=== PATIENT | male | born 1980 | race African-American/Black ===

== ENCOUNTER 2019-08-22 13:37 | Emergency (ER) | payer MEDICAID ==
[~2019-08-22] VITALS: Ht 180.3 cm; Wt 75.0 kg
[2019-08-22 13:39] VITALS: BP 136/78
== END 2019-08-22 14:40 | disposition left against medical advice (07) ==
LOC: ER 13:37
DX: M54.9 Dorsalgia, unspecified (principal); Z53.21 Procedure and treatment not carried out due to patient leaving prior to being seen by health care provider

== ENCOUNTER 2019-09-28 13:10 | Emergency (ER) | payer MEDICAID ==
[~2019-09-28] VITALS: Ht 182.9 cm; Wt 100.0 kg
[2019-09-28] MEDS ORDERED: SODIUM CHLORIDE 0.9% 1,000 ML IV ONE (13:20)
[2019-09-28] MEDS ORDERED: MORPHINE SULFATE 4 MG/ML CPJ (NOT FOR IM USE) IV ONE ×2 (13:30→15:00)
[2019-09-28 13:58] LABS: BASOPHILS % 0.5 % (0.0-2.0); EOSINOPHILS % 3.9 % (0.0-5.0); HEMATOCRIT. 39.6 % (42.0-52.0); HEMOGLOBIN. 13.7 g/dL (14.0-18.0); LYMPHOCYTES % 27.4 % (20.0-50.0); MEAN CORPUSCULAR HEMOGLOBIN 31.7 pg (28.0-32.0); MEAN CORPUSCULAR VOLUME 91.6 fL (80.0-94.0); MEAN PLATELET VOLUME 8.1 fl (7.4-10.4); MONOCYTES % 11.8 % (2.0-8.0); NEUTROPHILS % 56.4 % (40.0-76.0); PLATELET 275 x1000/uL (130-400); RED BLOOD CELL COUNT 4.32 mill/uL (4.7-6.1); RED CELL DISTRIBUTION WIDTH 13.2 % (11.6-14.6)
[2019-09-28 14:02] LABS: PROTHROMBIN TIME 10.9 sec (9.6-11.0)
[2019-09-28 14:19] LABS: CHLORIDE 107 mEq/L (98-107)
[2019-09-28] MEDS ORDERED: TETANUS, DIPHTHERIA, PERTUSSIS VAC/PF 0.5ML (>7YR OLD) IM ONE (14:45)
[2019-09-28] MEDS ORDERED: OXYCODONE HCL/ACETAMINOPHEN 5/325MG TABLET PO ONE (16:30)
[2019-09-28 18:35] VITALS: BP 155/80
== END 2019-09-28 18:37 | disposition home or self-care (01) ==
LOC: ER 13:10
DX: S82.392A Other fracture of lower end of left tibia, initial encounter for closed fracture (principal); S92.252A Displaced fracture of navicular [scaphoid] of left foot, initial encounter for closed fracture; S92.192A Other fracture of left talus, initial encounter for closed fracture; W34.09XA Accidental discharge from other specified firearms, initial encounter; Y93.89 Activity, other specified; Y92.89 Other specified places as the place of occurrence of the external cause; Y99.8 Other external cause status; F14.10 Cocaine abuse, uncomplicated; F12.10 Cannabis abuse, uncomplicated; F15.10 Other stimulant abuse, uncomplicated
CPT/HCPCS: 29515; 36415; 71045; 72170; 73610; 73630; 80053; 85025; 85610; 86850; 86900; 86901; 90471; 90715; 93005; 96374; 96376; 99285; J2270; J7030; 99284

== ENCOUNTER 2019-09-29 06:11 | Emergency (ER) | payer MEDICAID ==
[~2019-09-29] VITALS: Ht 172.7 cm; Wt 87.0 kg
[2019-09-29] MEDS ORDERED: MORPHINE SULFATE 4 MG/ML CPJ (NOT FOR IM USE) IV ONE ×3 (06:30→09:30)
[2019-09-29] MEDS ORDERED: OXYCODONE HCL/ACETAMINOPHEN 5/325MG TABLET PO ONE (08:30)
[2019-09-29 09:48] VITALS: BP 150/99
== END 2019-09-29 09:43 | disposition home or self-care (01) ==
LOC: ER 06:11
DX: S91.302A Unspecified open wound, left foot, initial encounter (principal); X95.9XXA Assault by unspecified firearm discharge, initial encounter; Y93.89 Activity, other specified; Y92.89 Other specified places as the place of occurrence of the external cause; F14.10 Cocaine abuse, uncomplicated; F15.10 Other stimulant abuse, uncomplicated; F12.90 Cannabis use, unspecified, uncomplicated
CPT/HCPCS: 29505; 96374; 96376; 99284; J2270

== ENCOUNTER 2025-01-27 15:19 | Emergency (ER) | payer MEDICAID, OTHER ==
[~2025-01-27] VITALS: Ht 177.8 cm; Wt 100.0 kg
[2025-01-27 15:21] VITALS: O2SAT 100
[2025-01-27 16:14] VITALS: BP 114/86; PULSE 75; RESP 16; TEMP 36.7; O2SAT 100
== END 2025-01-27 16:15 | disposition home or self-care (01) ==
LOC: ER 15:19
DX: R55 Syncope and collapse (principal); R42 Dizziness and giddiness
CPT/HCPCS: 93005; 99283